=== PATIENT | female | born 1955 | race Caucasian/White ===

== ENCOUNTER 2021-12-25 19:12 | Emergency (ER) | payer OTHER ==
[2021-12-25 19:50] LABS: BASOPHIL 0.5 % (0-2); EOSINOPHIL 2.5 % (0-7); HCT 40.3 % (37.0-47.0); HGB 13.6 g/dl (12.5-16.0); MCH 30.8 pg (25.0-31.0); MCHC 33.7 g/dL (32.0-36.0); MCV 91.2 fL (78.0-100.0); MONOCYTE 13.8 % (0-12); MPV 9.7 fL (6.0-9.5); NEUTROPHIL 45.9 % (41-80); NRBC 0; PLT 247 K/uL (150-400); RBC 4.42 M/uL (4.20-5.40); RDW 11.9 % (11.5-14.0); WBC 6.5 K/uL (4.0-10.5)
[2021-12-25 20:07] LABS: ALBUMIN 3.5 g/dL (3.4-5.0); BILIRUBIN - TOTAL 0.2 mg/dL (0.2-1.0); BUN/CREAT RATIO (CALC) 18.6 RATIO; CREATININE 0.86 mg/dL (0.51-0.95); GLOBULIN (CALCULATION) 3.4 g/dL; POTASSIUM 4.3 mmol/L (3.5-5.1); TOTAL PROTEIN 6.9 g/dL (6.4-8.2)
[2021-12-25] MEDS ORDERED: NORCO 5-325 TA1 EACH PO ×2 (21:37→22:32)
[2021-12-30] MEDS ORDERED: SYNTHROID88 MCG PO (13:10)
[2021-12-30] MEDS ORDERED: PRILOSEC20 MG PO (13:11)
[2021-12-30] MEDS ORDERED: ALDACTONE50 MG PO (13:11)
[2021-12-30] MEDS ORDERED: ZYRTEC10 MG PO (13:12)
[2021-12-30] MEDS ORDERED: LIOTHYRONINE SO5 MCG PO (13:15)
[2022-01-03] MEDS ORDERED: ESTRADIOL1 EAC1 TD (10:40)
== END 2021-12-25 22:48 | disposition home or self-care (01) ==
LOC: FER 19:12
PROVIDERS: Nurse Practitioner Family
DX: S82.431A Displaced oblique fracture of shaft of right fibula, initial encounter for closed fracture (principal); S82.841A Displaced bimalleolar fracture of right lower leg, initial encounter for closed fracture; I10 Essential (primary) hypertension; E03.9 Hypothyroidism, unspecified; W18.09XA Striking against other object with subsequent fall, initial encounter; Y92.007 Garden or yard of unspecified non-institutional (private) residence as the place of occurrence of the external cause; Z28.310 Unvaccinated for COVID-19
CPT/HCPCS: 27810; 36415; 73600; 73610; 73630; 80053; 85025; 96374; 96375; 96376; J1170; J1885; J2405